=== PATIENT | male | born 1975 | race Caucasian/White ===

== ENCOUNTER 2021-01-28 13:15 | Outpatient (CLI) | payer OTHER, SELFPAY ==
--- NOTE | ~2021-01-28 | US_ITS ---
EXAMINATION: US scrotum doppler EXAM DATE: 01/28/2021 13:48 INDICATION: Swelling of scrotum. TECHNIQUE: Multiple grayscale and Doppler images of the testicles and scrotum were obtained bilateral ly. There is no prior study for comparison. FINDINGS: Right testicle measures 4.8 x 2.3 x 3.3 cm and is morphologically normal. Low resistance Doppler mitchel w confirmed. The epididymis is unremarkable. There is no hydrocele or varicocele. Left testicle measures 4.0 x 2.8 x 2.9 cm and is morphologically normal. Low resistance Doppler flow confirmed. The epididymis is unremarkable. Large hydrocele. IMPRESSION: Large left hydrocele. Reviewed, dictated and finalized at location A. [employer] IMPRESSION: Large left hydrocele.
== END 2021-01-28 13:16 ==
PROVIDERS: PCP Internal Medicine; Visit Provider Internal Medicine
DX: N50.89 Other specified disorders of the male genital organs (principal); N43.3 Hydrocele, unspecified
CPT/HCPCS: 76870; 93976

== ENCOUNTER → 2022-11-13 08:41 | Outpatient (CLI) | payer OTHER, SELFPAY ==
--- NOTE | ~2022-11-13 | US_ITS ---
Limited Abdominal Sonogram: Real-time sonographic imaging of the right upper quadrant was performed. Clinical History: Abdominal pain Findings: The liver appears mildly echogenic, with no evidence of mass lesion or bile duct dilatatio n. Main portal vein demonstrates normal direction of flow. The gallbladder is well distended, and tony ears normal with no evidence of gallstone or wall thickening. The common bile duct measures 4 mm. Th e visualized pancreas, aorta, and IVC are unremarkable. Impression: Probable diffuse fatty infiltration of the liver. Reviewed, dictated and finalized at location M. Impression: Probable diffuse fatty infiltration of the liver.
== END ==
PROVIDERS: PCP Internal Medicine; Visit Provider Internal Medicine
DX: R10.9 Unspecified abdominal pain (principal)
CPT/HCPCS: 76705

== ENCOUNTER 2024-02-24 13:15 | Outpatient (RCR) | payer OTHER, SELFPAY ==
--- NOTE | 2024-01-13 13:37 | OPREHPOC ---
Outpatient Therapy Plan of Care This is a Multidisciplinary Plan of Care that may contain components documented by all disciplines (PT, OT, and ST.) PT Problem 1 PT Problem #1 Knowledge Deficit PT Goal 1 Goal / Goal Update Pt to be IND with issued HEP Target Visit 10 PT Problem 2 PT Problem #2 Pain PT Goal 1 Goal / Goal Update 1. Pt to report shoulder pain no greater than 3/10 in the last week. 2. Pt to report 75% improvement in overall symptoms. 3. Pt to report getting a full night of sleep Target Visit 10 PT Problem 3 PT Problem #3 Impaired Range of Motion PT Goal 1 Goal / Goal Update 1. Pt to demonstrate active shoulder flexion and abduction to 140 deg. 2. Pt to demonstrate full elbow extension ROM. Target Visit 10 PT Problem 4 PT Problem #4 Impaired Strength PT Goal 1 Goal / Goal Update 1. Pt to improve fernando shoulder strength to grossly 4+/5 2. Pt to be able to lift 5lb overhead without an increase in pain. Target Visit 10
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
--- NOTE | 2024-01-21 13:39 | PCPTNOTE ---
Pt. no showed for his appointment this date. Called and pt. reported that he had forgotten he had an appointment today.
--- NOTE | 2024-02-02 14:22 | PCPTNOTE ---
Patient called and cancelled this date but did not provide a reason.
--- NOTE | 2024-02-04 13:36 | PCPTNOTE ---
Patient no showed appointment today.
--- NOTE | 2024-02-24 14:08 | OPREHPOC ---
Outpatient Therapy Plan of Care This is a Multidisciplinary Plan of Care that may contain components documented by all disciplines (PT, OT, and ST.) PT Problem 1 PT Problem #1 Knowledge Deficit PT Goal 1 Goal / Goal Update Pt to be IND with issued HEP 02/24/24: met Target Visit 10 Progress Met PT Problem 2 PT Problem #2 Pain PT Goal 1 Goal / Goal Update 1. Pt to report shoulder pain no greater than 3/10 in the last week. 2. Pt to report 75% improvement in overall symptoms. 3. Pt to report getting a full night of sleep 02/24/24: 1-3. not met Target Visit 10 Progress Not Met PT Problem 3 PT Problem #3 Impaired Range of Motion PT Goal 1 Goal / Goal Update 1. Pt to demonstrate active shoulder flexion and abduction to 140 deg. 2. Pt to demonstrate full elbow extension ROM. Target Visit 10 Progress Not Met PT Problem 4 PT Problem #4 Impaired Strength PT Goal 1 Goal / Goal Update 1. Pt to improve fernando shoulder strength to grossly 4+/5 2. Pt to be able to lift 5lb overhead without an increase in pain. Target Visit 10 Progress Not Met
--- NOTE | 2024-02-24 14:08 | PTOPDC ---
Assessment and note entered by Joan Galvin, PT, DPT Evaluation Information Assessment Status Discharge Diagnosis shoulder pain ICD-10 Condition Codes (PT) Pain in right shoulder M25.511,Pain in left shoulder M25.512 Subjective Information Pt states overall his shoulder feels about the same, states a lot is dependent on how he sleeps. He states his pain still gets up to an 8-9/10 with activity. Pt states his shoulder pops so bad it feels like it is bone on bone. Reported Pain Level Pain Score 4: Self Report Assessment PT Clinical Summary Pt has completed 8 visits of skilled therapy to treat his R shoulder pain. He has performed ROM, strengthening, and stability exercises. He reports minimal improvement in his symptoms. His active ROM has improved slightly but is still limited significantly by pain, as is his strength. He would like to be done with therapy at this time d/ t poor improvements, he plans to follow up with an orthopedic doctor. Plan of Care PT Services Indicated No
== END 2024-02-25 08:15 | disposition home or self-care (01) ==
LOC: ANHGOSHPT 13:15
PROVIDERS: PCP Internal Medicine; Visit Provider Internal Medicine
DX: M25.511 Pain in right shoulder (principal); M25.512 Pain in left shoulder
CPT/HCPCS: 97014; 97110; 97140; 97161; G0283